=== PATIENT | female | born 1965 | race Caucasian/White ===

== ENCOUNTER → 2018-07-27 | Outpatient (REF) ==
--- NOTE | 2018-07-28 02:44 | REP ---
Clinical: Right knee pain. Technique: AP, lateral, bilateral oblique and sunrise views of the right knee. Findings: The patient is noted to be status post arthroplasty. Femoral and tibial components are intact and normal in position and appearance. Associated postsurgical degenerative changes to the patella are appreciated. No acute fracture dislocation. No obvious hardware lucency. No effusion identified. Impression: Essentially appropriate right knee radiograph series. Electronically Signed by Acosta Arroyo MD 07/28/2018 02:35 A
== END ==
LOC: M SMT 13:15
PROVIDERS: ATTEND Internal Medicine
DX: Z02.71 Encounter for disability determination (principal)

== ENCOUNTER → 2023-06-16 | Outpatient (REF) | LOC: M PLAIMG 11:12 | PROVIDERS: ATTEND Internal Medicine | DX: R52 Pain, unspecified (principal) ==

== ENCOUNTER 2024-11-30 10:48 | Day surgery (SDC) | payer MEDICAID, OTHER ==
[~2024-11-30] VITALS: Ht 165.1 cm; Wt 115.7 kg
[~2024-11-30 10:48] MED LIST: BRIN1TAB3 PO; BUSP10TA PO; COLA100C5 PO; CYAN100017 IM; ECOT81TA5 PO; FERR325T19 PO; FLON1SPR; GABA-1172 PO; HYDR12.55 PO; HYDR50TA70 PO; INSU100V3; INSUH10VL; KP F1200 PO; LEVO200T4 PO; LISI10TA22 PO; MAGN64TASA PO; MIDAZOLAM INJ 2 MG/2 ML VIAL As Ordered ONE; ONDA-284 PO; PHENYLEPHRINE 10% OPHTH SOL 5ML OS PRN; PRAV20TA78 PO; VITA-199 PO
[2024-11-30] MEDS: OFLOXACIN 0.3 % (OCUFLOX) OPTH SOL 5ML OS ONE (11:26)
[2024-11-30] MEDS: LIDOCAINE 3.5% 1 ML OPHTH TOPICAL GEL OU ONE (11:27)
[2024-11-30] MEDS: CYCLOPENTOLATE 1% OPHTH SOLN 2 ML BTL OS SCH (11:27)
[2024-11-30] MEDS: TROPICAMIDE 1% OPHTH SOLN 15ML OS SCH (11:27)
[2024-11-30] MEDS: PHENYLEPHRINE 2.5% OPHTH SOL 2ML OS SCH (11:27)
[2024-11-30] MEDS: LIDOCAINE 1% SDV 5 ML VIAL As Ordered ONE (12:34)
[2024-11-30] MEDS: CEFUROXIME 1 MG/0.1 ML INTRACAMERAL INJ As Ordered ONE (12:34)
[2024-11-30] MEDS: BSS IRRIG/VANCO(10MG)/TOBRA(5MG)/EPINEPH(1:1000-0.5CC)500ML BAG-ORONLY As Ordered ONE (12:40)
[2024-11-30 12:42] VITALS: BP 118/65; TEMP 98; O2SAT 95
== END 2024-11-30 12:01 | disposition home or self-care (01) ==
LOC: M SDC 10:48
PROVIDERS: ATTEND Ophthalmology
DX: E11.36 Type 2 diabetes mellitus with diabetic cataract (principal); H25.11 Age-related nuclear cataract, right eye; I10 Essential (primary) hypertension; E89.0 Postprocedural hypothyroidism; E78.00 Pure hypercholesterolemia, unspecified; G43.909 Migraine, unspecified, not intractable, without status migrainosus; F41.9 Anxiety disorder, unspecified; Z79.82 Long term (current) use of aspirin; Z79.899 Other long term (current) drug therapy; K21.9 Gastro-esophageal reflux disease without esophagitis; Z90.710 Acquired absence of both cervix and uterus; Z88.8 Allergy status to other drugs, medicaments and biological substances; Z88.5 Allergy status to narcotic agent
CPT/HCPCS: 66984; J0697; J2250; J3010; V2632

== ENCOUNTER 2024-12-14 07:41 | Day surgery (SDC) | payer MEDICARE, OTHER ==
[~2024-12-14] VITALS: Ht 165.1 cm; Wt 117.8 kg
[~2024-12-14 07:41] MED LIST changes: +PHENYLEPHRINE 10% OPHTH SOL 5ML OD PRN; -PHENYLEPHRINE 10% OPHTH SOL 5ML OS PRN
[2024-12-14] MEDS: OFLOXACIN 0.3 % (OCUFLOX) OPTH SOL 5ML OD ONE (09:32)
[2024-12-14] MEDS: PHENYLEPHRINE 2.5% OPHTH SOL 2ML OD SCH (09:32)
[2024-12-14] MEDS: LIDOCAINE 3.5% 1 ML OPHTH TOPICAL GEL OU ONE (09:32)
[2024-12-14] MEDS: TROPICAMIDE 1% OPHTH SOLN 15ML OD SCH (09:32)
[2024-12-14] MEDS: CYCLOPENTOLATE 1% OPHTH SOLN 2 ML BTL OD SCH (09:32)
[2024-12-14] MEDS: LIDOCAINE 1% SDV 5 ML VIAL As Ordered ONE (10:20)
[2024-12-14] MEDS: CEFUROXIME 1 MG/0.1 ML INTRACAMERAL INJ As Ordered ONE (10:21)
[2024-12-14] MEDS: BSS IRRIG/VANCO(10MG)/TOBRA(5MG)/EPINEPH(1:1000-0.5CC)500ML BAG-ORONLY As Ordered ONE (10:21)
[2024-12-14 10:33] VITALS: BP 109/72; TEMP 97.4; O2SAT 97
== END 2024-12-14 10:50 | disposition home or self-care (01) ==
LOC: M SDC 07:41
PROVIDERS: ATTEND Ophthalmology
DX: E11.36 Type 2 diabetes mellitus with diabetic cataract (principal); H25.11 Age-related nuclear cataract, right eye; I10 Essential (primary) hypertension; E89.0 Postprocedural hypothyroidism; K75.81 Nonalcoholic steatohepatitis (NASH); E78.00 Pure hypercholesterolemia, unspecified; G47.30 Sleep apnea, unspecified; K74.60 Unspecified cirrhosis of liver; K21.9 Gastro-esophageal reflux disease without esophagitis; Z79.899 Other long term (current) drug therapy; Z79.4 Long term (current) use of insulin; Z79.890 Hormone replacement therapy; Z96.41 Presence of insulin pump (external) (internal); Z88.8 Allergy status to other drugs, medicaments and biological substances; Z88.5 Allergy status to narcotic agent; F41.9 Anxiety disorder, unspecified; F32.A Depression, unspecified
CPT/HCPCS: 66984; J0697; J2250; J3010; V2632